=== PATIENT | male | born 1990 | race Caucasian/White ===

== ENCOUNTER 2017-08-10 13:27 | Day surgery (SDC) | payer OTHER ==
[2017-08-10] MEDS ORDERED: LIDOCAINE 2% (SDV) 5 ML INJ (17:48)
[2017-08-10] MEDS ORDERED: MIDAZOLAM 1 MG/ML 2 ML INJ (17:48)
[2017-08-10] MEDS ORDERED: PROPOFOL 20 ML (17:48)
== END 2017-08-10 18:57 | disposition home or self-care (01) ==
LOC: GIL 13:27
DX: K29.70 Gastritis, unspecified, without bleeding (principal); K20.9 Esophagitis, unspecified; K44.9 Diaphragmatic hernia without obstruction or gangrene; Q39.4 Esophageal web
CPT/HCPCS: 43239; 88305